=== PATIENT | female | born 1975 ===

== ENCOUNTER 2020-06-28 06:00 | Day surgery (SDC) | payer OTHER ==
[2020-06-28] MEDS ORDERED: PERCOCET 5-3251 EACH PO (13:07)
== END 2020-06-28 15:15 | disposition home or self-care (01) ==
LOC: CIR.AMB 06:00
PROVIDERS: ATTEND Obstetrics & Gynecology Gynecology
DX: N80.0 Endometriosis of uterus (principal); N73.6 Female pelvic peritoneal adhesions (postinfective); Z20.828 Contact with and (suspected) exposure to other viral communicable diseases